=== PATIENT | female | born 1960 | race Caucasian/White ===

== ENCOUNTER 2018-01-24 10:17 | Emergency (ER) | payer OTHER ==
[2018-01-24 10:48] VITALS: BP 129/79; PULSE 92; TEMP 99.9; BMI 30.9
--- NOTE | 2018-01-24 11:30 | PDOC ---
History of Present Illness - General Chief Complaint: Headache Stated Complaint: FALL/HEADACHE Time Seen by Provider: 01/24/18 11:11 History Source: Patient Exam Limitations: No Limitations - History of Present Illness Initial Comments: 01/24/18 14:40 Patient is a 57-year-old female with no past medical history, who presents to the emergency department today for a headache for 2 days. Patient also endorses flulike symptoms. States that she fell 2 days ago and has had a frontal headache since. She also states that she was seen at urgent care yesterday for her flulike symptoms. She had a negative flu test and was told she most likely had a virus. She states that she still hasn't gotten better and is concerned she might actually have the flu. Endorses subjective fevers, congestion, rhinorrhea, headache. Denies shortness of breath, difficulty breathing, chest pain, nausea, vomiting and diarrhea. Past History - Travel Traveled outside of the country in the last 30 days: No Close contact w/someone who was outside of country & ill: No - Past Medical History Allergies/Adverse Reactions: Allergies Allergy/AdvReac Type Severity Reaction Status Date / Time No Known Allergies Allergy Unverified 01/31/16 02:44 Home Medications: Ambulatory Orders Aspirin Coated [Ecotrin -] 81 mg PO DAILY #30 tablet.ec 06/13/15 Methylprednisolone [Medrol Dose Christoph] 4 mg PO ASDIR #21 tablet 06/13/15 Pantoprazole Sodium [Protonix -] 20 mg PO DAILY #30 tablet.ec 06/13/15 Acetaminophen W/ Codeine #3 [Tylenol # 3 -] 1 tab PO Q6H #20 tablet MDD 6 Naproxen Sodium [Naproxen Sodium ER] 500 mg PO BID #30 tablet.er 01/31/16 Anemia: No COPD: No CHF: No Dialysis: No GI Disorders: No Kidney Stones: No - Surgical History Gastric Stapling: Yes GI Surgery: Yes Neurologic Surgery: No - Immunization History Immunization Up to Date: No - Suicide/Smoking/Psychosocial Hx Smoking History: Never smoked Have you smoked in the past 12 months: No Information on smoking cessation initiated: No Hx Alcohol Use: No Drug/Substance Use Hx: No Substance Use Type: None Hx Substance Use Treatment: No Review of Systems - Review of Systems Able to Perform ROS?: Yes Comments:: 01/24/18 14:37 CONSTITUTIONAL: Present: Fever, chills, body aches Absent: diaphoresis, generalized weakness, malaise, loss of appetite HEENT: Present: rhinorrhea, nasal congestion. Absent: throat pain, difficulty swallowing, mouth swelling, ear pain, eye pain, visual Changes CARDIOVASCULAR: Absent: chest pain, loss of consciousness, palpitations, irregular heart rate, peripheral edema RESPIRATORY: Present: Cough Absent: shortness of breath, dyspnea with exertion, orthopnea, wheezing, stridor, hemoptysis GASTROINTESTINAL: Absent: abdominal pain, abdominal distension, nausea, vomiting, diarrhea, constipation, melena, hematochezia SKIN: Absent: rash, itching, pallor NEUROLOGIC: Present: headache Absent: focal weakness or paresthesias, dizziness, unsteady gait, seizure, mental status changes, bladder or bowel incontinence Is the patient limited Citizen Of [place] proficient: No *Physical Exam - Vital Signs Last Vital Signs Temp Pulse Resp BP Pulse Ox 99.9 F H 92 H 16 129/79 97 01/24/18 10:35 01/24/18 10:35 01/24/18 10:35 01/24/18 10:35 01/24/18 10:35 - Physical Exam Comments: 01/24/18 14:39 GENERAL: Well developed, well nourished. Awake and alert. No acute distress. HEENT: Normocephalic, atraumatic. PERRLA, EOMI. No conjunctival pallor. Sclera are non- icteric. Moist mucous membranes. Congestion and rhinorrhea noted. Oropharynx is clear. NECK: Supple. Full ROM. No JVD. Carotid pulses 2+ and symmetric, without bruits. No thyromegaly. No lymphadenopathy. CARDIOVASCULAR: Regular rate and rhythm. No murmurs, rubs, or gallops. Distal pulses are 2+ and symmetric. PULMONARY: No evidence of respiratory distress. Lungs clear to auscultation bilaterally. No wheezing, rales or rhonchi. ABDOMINAL: Soft. Non-tender. Non-distended. No rebound or guarding. No organomegaly. Normoactive bowel sounds. MUSCULOSKELETAL Normal range of motion at all joints. No bony deformities or tenderness. No CVA tenderness. EXTREMITIES: No cyanosis. No clubbing. No edema. No calf tenderness. SKIN: Warm and dry. Normal capillary refill. No rashes. No jaundice. NEUROLOGICAL: Alert, awake, appropriate. Cranial nerves 2-12 intact. No deficits to light touch and temperature in face, upper extremities and lower extremities. No motor deficits in the in face, upper extremities and lower extremities. Normoreflexic in the upper and lower extremities. Normal speech. Toes are down- going bilaterally. Gait is normal without ataxia. PSYCHIATRIC: Cooperative. Good eye contact. Appropriate mood and affect. ED Treatment Course - LABORATORY CBC & Chemistry Diagram: 01/24/18 11:30 01/24/18 11:30 Medical Decision Making - Medical Decision Making 01/24/18 13:06 Patient is a 57-year-old female no past medical history presenting with 2 days of headache, congestion, cough and rhinorrhea status post fall. Patient denied loss of consciousness. History notable for negative flu test at urgent care. Most likely seems like a viral syndrome, however, since patient has headache status post fall with no relief of symptoms will order head CT at this time Labs ordered. IV Tylenol, fluids, and Robitussin ordered. 01/24/18 15:[address] is negative for bleed, fracture, ischemia at this time. Rapid flu swab is again negative. Lab work is within normal limits, no leukocytosis or shift. Electrolytes grossly normal. Patient feels better after fluids, Tylenol and Robitussin. Discharge home I discussed the physical exam findings, ancillary test results and final diagnoses with the patient. I answered all of the patient's questions. The patient was satisfied with the care received and felt comfortable with the discharge plan and treatment plan. The Patient agrees to follow up with the primary care physician/specialist within 24-72 hours. Return precautions were given. *DC/Admit/Observation/Transfer Diagnosis at time of Disposition: Upper respiratory infection Qualifiers: URI type: unspecified URI Qualified Code(s): J06.9 - Acute upper respiratory infection, unspecified - Discharge Dispostion Disposition: HOME Condition at time of disposition: Stable Decision to Admit order: No - Referrals Referrals: Alex Miranda MD [Primary Care Provider] - - Patient Instructions Printed Discharge Instructions: DI for Viral Upper Respiratory Infection -- Adult Additional Instructions: You have an upper respiratory infection, or the common cold. Your flu testing was negative today. Please take Motrin 800 mg every 8 hours as needed for pain not to exceed 3000 mg a day. Drink plenty of fluids. You may take over the counter robitussin for your cough. Follow the dosing instructions on the bottle. Cough drops and warm tea may help your symptoms as well. Please follow up with her primary care doctor this week. Return to the emergency department if you have difficulty breathing, shortness of breath, worsening pain, nausea, vomiting or if you have any changes in your symptoms. - Post Discharge Activity Forms/Work/School Notes: Back to Work
[2018-01-24] MEDS ORDERED: SODIUM CHLORIDE 1,000 ML IV STA (11:31)
[2018-01-24] MEDS ORDERED: ACETAMINOPHEN 1000 MG/100 ML VIAL (NON FORMULARY) IVPB ONE (11:31)
[2018-01-24] MEDS ORDERED: guaiFENesin 200 MG/10 ML 10 ML UNIT-DOSE CUPS PO ONE (11:32)
[2018-01-24] MEDS ORDERED: guaiFENesin 200 MG/10 ML 10 ML UNIT-DOSE CUPS ONE (12:13)
[2018-01-24] MEDS ORDERED: ACETAMINOPHEN INJECTION 100 ML IVPB ONE (12:14)
[2018-01-24 12:42] LABS: BASO % 0.7 % (0-2.0); EOS % 0.4 % (0-4.5); HEMATOCRIT 42.1 % (32.4-45.2); LYMPH % 18.2 % (8-40); MCH 28.8 pg (25.7-33.7); MCHC 33.4 g/dl (32.0-36.0); MEAN CELL VOLUME 86.2 fl (80-96); MEAN PLT VOLUME 10.3 fl (7.5-11.1); MONO % 14.1 % (3.8-10.2); NEUT % 66.6 % (42.8-82.8); PLATELET COUNT 174 K/MM3 (134-434); RBC 4.88 M/mm3 (3.60-5.2); RDW 13.8 % (11.6-15.6); WHITE BLOOD COUNT 6.5 K/mm3 (4.0-10.0)
[2018-01-24 12:44] LABS: URINE APPEARANCE CLEAR; URINE BILIRUBIN NEGATIVE (<2.0 mg/dL); URINE COLOR LTYELLOW; URINE GLUCOSE (UA) NEGATIVE (NEGATIVE); URINE KETONE TRACE (NEGATIVE); URINE LEUK ESTERASE TRACE (NEGATIVE); URINE NITRITE NEGATIVE (NEGATIVE); URINE PROTEIN NEGATIVE (NEGATIVE); URINE UROBILINOGEN NEGATIVE mg/dL (0.2-1.0)
[2018-01-24 13:10] LABS: EPI CELLS RARE /HPF (FEW); URINE MUCUS RARE
--- NOTE | 2018-01-24 13:15 | PDOC ---
History of Present Illness - General Chief Complaint: Headache Stated Complaint: FALL/HEADACHE Time Seen by Provider: 01/24/18 11:11 Past History - Past Medical History Allergies/Adverse Reactions: Allergies Allergy/AdvReac Type Severity Reaction Status Date / Time No Known Allergies Allergy Unverified 01/31/16 02:44 Home Medications: Ambulatory Orders Aspirin Coated [Ecotrin -] 81 mg PO DAILY #30 tablet.ec 06/13/15 Methylprednisolone [Medrol Dose Christoph] 4 mg PO ASDIR #21 tablet 06/13/15 Pantoprazole Sodium [Protonix -] 20 mg PO DAILY #30 tablet.ec 06/13/15 Acetaminophen W/ Codeine #3 [Tylenol # 3 -] 1 tab PO Q6H #20 tablet MDD 6 Naproxen Sodium [Naproxen Sodium ER] 500 mg PO BID #30 tablet.er 01/31/16 Anemia: No COPD: No CHF: No Dialysis: No GI Disorders: No Kidney Stones: No - Surgical History Gastric Stapling: Yes GI Surgery: Yes Neurologic Surgery: No - Immunization History Immunization Up to Date: No - Suicide/Smoking/Psychosocial Hx Smoking History: Never smoked Have you smoked in the past 12 months: No Information on smoking cessation initiated: No Hx Alcohol Use: No Drug/Substance Use Hx: No Substance Use Type: None Hx Substance Use Treatment: No *Physical Exam - Vital Signs Last Vital Signs Temp Pulse Resp BP Pulse Ox 99.9 F H 92 H 16 129/79 97 01/24/18 10:35 01/24/18 10:35 01/24/18 10:35 01/24/18 10:35 01/24/18 10:35 ED Treatment Course - LABORATORY CBC & Chemistry Diagram: 01/24/18 11:30 01/24/18 11:30 - ADDITIONAL ORDERS Additional order review: Laboratory Results 01/24/18 11:30 Urine Color Ltyellow Urine Appearance Clear Urine pH 6.0 Ur Specific [place] 1.015 Urine Protein Negative Urine Glucose (UA) Negative Urine Ketones Trace H Urine Blood 1+ H Urine Nitrite Negative Urine Bilirubin Negative Urine Urobilinogen Negative Ur Leukocyte Esterase Trace 01/24/18 11:30 RBC 4.88 MCV 86.2 MCHC 33.4 RDW 13.8 MPV 10.3 Neutrophils % 66.6 D Lymphocytes % 18.2 D Monocytes % 14.1 H Eosinophils % 0.4 D Basophils % 0.7 - Medications Given in the ED: ED Medications Discontinued Medications Generic Name Dose Route Start Last Admin Trade Name Dottie PRN Reason Stop Dose Admin Acetaminophen 1,000 mg 01/24/18 11:31 01/24/18 12:43 Ofirmev Injection - IVPB 01/24/18 11:32 1,000 mg ONCE ONE Administration Guaifenesin 10 ml 01/24/18 11:32 01/24/18 12:43 Robitussin - PO 01/24/18 11:33 10 ml ONCE ONE Administration Sodium Chloride 1,000 mls @ 1,000 mls/hr 01/24/18 11:31 01/24/18 12:42 Normal Saline - IV 01/24/18 12:30 1,000 mls/hr ASDIR STA Administration *DC/Admit/Observation/Transfer - Referrals Referrals: Alex Miranda MD [Primary Care Provider] - - Patient Instructions - Post Discharge Activity
[2018-01-24 13:16] LABS: ALBUMIN 3.7 g/dl (3.4-5.0); ALK PHOS 71 U/L (45-117); ANION GAP 7 MMOL/L (8-16); BILIRUBIN,TOTAL 0.4 mg/dL (0.2-1); BLOOD UREA NITROGEN 16 mg/dL (7-18); CALCIUM 8.6 mg/dL (8.5-10.1); CHLORIDE 106 mmol/L (98-107); CO2 28 mmol/L (21-32); CREATININE 0.8 mg/dL (0.55-1.3); GLUCOSE,RANDOM 76 mg/dL (74-106); POTASSIUM 4.7 mmol/L (3.5-5.1); SGOT/AST 25 U/L (15-37); SGPT/ALT 21 U/L (13-61); SODIUM 141 mmol/L (136-145); TOT PROT 7.2 g/dl (6.4-8.2)
== END 2018-01-24 15:29 | disposition home or self-care (01) ==
LOC: JER 10:17
PROC: 3E033NZ Introduction of Analgesics, Hypnotics, Sedatives into Peripheral Vein, Percutaneous Approach (ICD-10-PCS; principal; 2018-01-24)
PROC: 3E0337Z Introduction of Electrolytic and Water Balance Substance into Peripheral Vein, Percutaneous Approach (ICD-10-PCS; 2018-01-24)
DX: J06.9 Acute upper respiratory infection, unspecified (principal)
CPT/HCPCS: 36415; 70450-TC; 80053; 81003; 81015; 85025; 87804; 99283-25; J0131; J7030

== ENCOUNTER 2021-02-02 18:46 | Emergency (ER) | payer OTHER ==
[2021-02-02 18:56] VITALS: BMI 30.9
[2021-02-02] MEDS ORDERED: SODIUM CHLORIDE 1,000 ML IV STA (19:43)
[2021-02-02 20:54] LABS: BASO % 0.7 % (0-2.0); EOS % 1.3 % (0-4.5); HEMATOCRIT 38.9 % (32.4-45.2); HEMOGLOBIN 13.1 GM/dL (10.7-15.3); LYMPH % 28.9 % (8-40); MCHC 33.8 g/dl (32.0-36.0); MEAN CELL VOLUME 85.7 fl (80-96); MEAN PLT VOLUME 9.4 fl (7.5-11.1); MONO % 15.4 % (3.8-10.2); NEUT % 53.7 % (42.8-82.8); PLATELET COUNT 215 10^3/uL (134-434); RBC 4.53 M/mm3 (3.60-5.2); RDW 14.3 % (11.6-15.6)
[2021-02-02 20:58] LABS: EPI CELLS 15 /uL (0-25.1); HYALINE CASTS 1 /uL (0-3.1); PH,URINE 5.5 (5.0-8.0); URINE APPEARANCE CLEAR; URINE BACTERIA 299 /uL (0-1359); URINE BILIRUBIN NEGATIVE (NEGATIVE); URINE COLOR YELLOW; URINE GLUCOSE (UA) NEGATIVE (NEGATIVE); URINE KETONE NEGATIVE (NEGATIVE); URINE LEUK ESTERASE TRACE (NEGATIVE); URINE NITRITE NEGATIVE (NEGATIVE); URINE PROTEIN NEGATIVE (NEGATIVE); URINE RBC 7 /uL (0-23.9); URINE UROBILINOGEN 0.2 mg/dL (0.2-1.0); URINE WBC 47 /uL (0-25.8)
[2021-02-02 21:00] LABS: INR 1.12 (0.83-1.09); PROTHROMBIN TIME (PATIENT) 12.6 SEC (9.7-13.0)
[2021-02-02 21:07] LABS: BLOOD UREA NITROGEN 8.9 mg/dL (7-18); CALCIUM 8.6 mg/dL (8.5-10.1); MAGNESIUM 2.2 mg/dL (1.8-2.4)
[2021-02-02 21:11] LABS: CREATININE 0.9 mg/dL (0.55-1.3)
[2021-02-02 21:12] LABS: BILIRUBIN,TOTAL 0.2 mg/dL (0.2-1); TOT PROT 6.4 g/dl (6.4-8.2)
[2021-02-02 22:09] VITALS: BP 134/85; PULSE 79; TEMP 98.1
== END 2021-02-02 22:09 | disposition home or self-care (01) ==
LOC: JER 18:46
PROC: 3E0337Z Introduction of Electrolytic and Water Balance Substance into Peripheral Vein, Percutaneous Approach (ICD-10-PCS; principal; 2021-02-02)
DX: R19.7 Diarrhea, unspecified (principal)
CPT/HCPCS: 36415; 80053; 81003; 82550; 83735; 84484; 85025; 85610; 87086; 87186; 87324; 87449; 93005; 93010; 99285-25

== ENCOUNTER 2021-10-19 11:50 | Emergency (ER) | payer OTHER ==
[2021-10-19 12:17] VITALS: BP 103/69; PULSE 118; TEMP 100; BMI 30.9
[2021-10-19] MEDS ORDERED: SODIUM CHLORIDE 0.9% 500 ML INFUS.BAG IV ONE (14:26)
[2021-10-19] MEDS ORDERED: KETOROLAC TROMETHAMINE 30 MG/1 ML VIAL IVPB ONE (14:26)
[2021-10-19] MEDS ORDERED: KETOROLAC TROMETHAMINE 30 MG/1 ML VIAL ONE (14:49)
[2021-10-19 15:20] LABS: BASO % 0.3 % (0-2.0); HEMATOCRIT 41.7 % (32.4-45.2); LYMPH % 11.1 % (8-40); MCH 28.6 pg (25.7-33.7); MCHC 33.7 g/dl (32.0-36.0); MEAN CELL VOLUME 84.9 fl (80-96); MONO % 12.2 % (3.8-10.2); NEUT % 76.4 % (42.8-82.8); PLATELET COUNT 170 10^3/uL (134-434); RBC 4.91 M/mm3 (3.60-5.2); WHITE BLOOD COUNT 13.2 K/mm3 (4.0-10.0)
[2021-10-19 15:40] LABS: CALCIUM 8.9 mg/dL (8.5-10.1)
[2021-10-19 15:41] LABS: ALBUMIN 3.3 g/dl (3.4-5.0); BLOOD UREA NITROGEN 13.4 mg/dL (7-18)
[2021-10-19 15:45] LABS: BILIRUBIN,TOTAL 0.5 mg/dL (0.2-1); TOT PROT 7.2 g/dl (6.4-8.2)
[2021-10-19 17:10] LABS: EPI CELLS 18 /uL (0-25.1); HYALINE CASTS 2 /uL (0-3.1); PH,URINE 5.5 (5.0-8.0); URINE APPEARANCE CLOUDY; URINE BACTERIA >9,000 /uL (0-1359); URINE BILIRUBIN NEGATIVE (NEGATIVE); URINE COLOR YELLOW; URINE GLUCOSE (UA) NEGATIVE (NEGATIVE); URINE KETONE TRACE (NEGATIVE); URINE LEUK ESTERASE 3+ (NEGATIVE); URINE NITRITE POSITIVE (NEGATIVE); URINE PROTEIN 1+ (NEGATIVE); URINE RBC 29 /uL (0-23.9); URINE UROBILINOGEN 0.2 mg/dL (0.2-1.0); URINE WBC 2540 /uL (0-25.8)
== END 2021-10-19 18:42 | disposition home or self-care (01) ==
LOC: JER 11:50
PROC: 3E0333Z Introduction of Anti-inflammatory into Peripheral Vein, Percutaneous Approach (ICD-10-PCS; principal; 2021-10-19)
DX: N30.01 Acute cystitis with hematuria (principal)
CPT/HCPCS: 0241U-QW; 36415; 71046-TC-FY; 80053; 81003; 85025; 87086; 87186; 99284-25

== ENCOUNTER 2022-06-12 01:56 | Emergency (ER) | payer OTHER ==
[2022-06-12 03:04] VITALS: BP 118/86; PULSE 99; RESP 18; TEMP 97.9; BMI 30.4
[2022-06-12] MEDS ORDERED: FAMOTIDINE 20 MG/50 ML IVPB 20 MG/50 ML MG IVPB ONE ×2 (03:33→03:35)
[2022-06-12] MEDS ORDERED: MAG HYDROX/AL HYDROX/SIMETH 30 ML UNIT-DOSE CUP PO ONE (03:33)
[2022-06-12] MEDS ORDERED: ONDANSETRON 4 MG/2 ML VIAL IVPB ONE (03:34)
[2022-06-12] MEDS ORDERED: ONDANSETRON 4 MG/2 ML VIAL ONE (03:35)
[2022-06-12] MEDS ORDERED: MAG HYDROX/AL HYDROX/SIMETH 30 ML UNIT-DOSE CUP ONE (03:35)
[2022-06-12] MEDS ORDERED: LIDOCAINE VISCOUS 2% ORAL/TOP 15 ML UNIT-DOSE CUP MM ONE (04:02)
[2022-06-12] MEDS ORDERED: SUCRALFATE 1 GM TABLET (FP) PO ONE ×2 (04:07→04:15)
[2022-06-12] MEDS ORDERED: LIDOCAINE VISCOUS 2% ORAL/TOP 15 ML UNIT-DOSE CUP ONE (04:08)
[2022-06-12] MEDS ORDERED: SUCRALFATE 1 GM TABLET (FP) ONE (04:08)
[2022-06-12 04:16] LABS: BASO % 0.4 % (0-2.0); EOS % 0.9 % (0-4.5); HEMATOCRIT 42.5 % (32.4-45.2); HEMOGLOBIN 14.3 GM/dL (10.7-15.3); LYMPH % 32.9 % (8-40); MCH 28.5 pg (25.7-33.7); MCHC 33.6 g/dl (32.0-36.0); MEAN CELL VOLUME 84.8 fl (80-96); MEAN PLT VOLUME 10.1 fl (7.5-11.1); MONO % 8.5 % (3.8-10.2); NEUT % 57.3 % (42.8-82.8); PLATELET COUNT 198 10^3/uL (134-434); RBC 5.01 M/mm3 (3.60-5.2); RDW 14.9 % (11.6-15.6); WHITE BLOOD COUNT 7.7 K/mm3 (4.0-10.0)
[2022-06-12 04:23] LABS: INR 0.97 (0.83-1.09); PROTHROMBIN TIME (PATIENT) 11.3 SEC (9.7-13.0)
[2022-06-12 04:26] LABS: ACTIVATED PTT 34.3 SECONDS (25.2-36.5)
[2022-06-12 04:36] LABS: ALBUMIN 3.8 g/dl (3.4-5.0); BLOOD UREA NITROGEN 15.4 mg/dL (7-18); MAGNESIUM 2.1 mg/dL (1.8-2.4)
[2022-06-12 04:39] LABS: PHOSPHOROUS 3.8 mg/dL (2.5-4.9)
[2022-06-12 04:40] LABS: BILIRUBIN,TOTAL 0.3 mg/dL (0.2-1); TOT PROT 6.7 g/dl (6.4-8.2)
[2022-06-12] MEDS ORDERED: AZITHROMYCIN 250 MG TABLET PO ONE (05:03)
[2022-06-12] MEDS ORDERED: DEXAMETHASONE 4 MG TABLET (FP) PO ONE (05:04)
[2022-06-12] MEDS ORDERED: AZITHROMYCIN 250 MG TABLET ONE (05:07)
[2022-06-12] MEDS ORDERED: DEXAMETHASONE 4 MG TABLET (FP) ONE (05:08)
== END 2022-06-12 05:34 | disposition home or self-care (01) ==
LOC: JER 01:56
PROC: 3E033GC Introduction of Other Therapeutic Substance into Peripheral Vein, Percutaneous Approach (ICD-10-PCS; principal; 2022-06-12)
PROC: 3E033GC Introduction of Other Therapeutic Substance into Peripheral Vein, Percutaneous Approach (ICD-10-PCS; 2022-06-12)
DX: K92.0 Hematemesis (principal)
CPT/HCPCS: 36415; 71045-TC-FY; 80053; 83690; 83735; 84100; 84484; 85025; 85610; 85730; 93005; 93010; 99285-25

== ENCOUNTER 2024-01-04 21:04 | Emergency (ER) | payer OTHER ==
[2024-01-04 21:12] VITALS: BP 140/97; PULSE 90; RESP 16; TEMP 98.8; BMI 30.4
[2024-01-04] MEDS ORDERED: ACETAMINOPHEN 325 MG TABLET (FP) ONE (21:58)
[2024-01-04] MEDS: ACETAMINOPHEN 325 MG TABLET (FP) PO ONE (21:59)
== END 2024-01-04 22:14 | disposition home or self-care (01) ==
LOC: JERFT 21:04
DX: S39.012A Strain of muscle, fascia and tendon of lower back, initial encounter (principal); M25.562 Pain in left knee; V43.62XA Car passenger injured in collision with other type car in traffic accident, initial encounter; Y92.410 Unspecified street and highway as the place of occurrence of the external cause
CPT/HCPCS: 99283-25